=== PATIENT | male | born 1970 | race Asian ===

== ENCOUNTER → 2022-02-03 | Outpatient (CLI) | payer BC ==
[~2022-02-03] MED LIST: ATOR20TA; [UNRECOGNIZED DRUG - OTHER]
== END | disposition home or self-care (01) ==
LOC: LAB 15:28
PROVIDERS: ATTEND Internal Medicine
DX: R05.9 Cough, unspecified (principal)
CPT/HCPCS: 87070; 87077; 87186; 87205

== ENCOUNTER → 2023-06-10 | Outpatient (CLI) | payer BC ==
[2023-06-10 14:17] LABS: Basophils # (auto) 0 10 ^3/uL (0-0.2); Basophils % (auto) 0.7 % (0.0-2.0); Eosinophils # (auto) 0.2 10 ^3/uL (0-0.8); Eosinophils % (auto) 2.1 % (0.0-7.0); Lymphocytes # (auto) 2.9 10 ^3/uL (0.4-5.4); Lymphocytes % (auto) 38.1 % (10.0-50.0); Mean Corpuscular Hemoglobin 29.6 pg (28.0-32.0); Mean Corpuscular Hgb Conc. 33.4 g/dL (32.0-36.0); Mean Corpuscular Volume 88.8 fL (80.0-100.0); Monocytes # (auto) 0.8 10 ^3/uL (0-1.3); Monocytes % (auto) 10.3 % (0.0-12.0); Neutrophils # (auto) 3.7 10 ^3/uL (1.6-8.6); Neutrophils % (auto) 48.8 % (37.0-80.0); Nucleated Red Blood Cells % 0.1 %; Red Blood Cells 4.74 10^6/uL (4.5-5.90); Red Cell Distribution Width 14.7 % (11.8-14.3); White Blood Cell 7.6 10^3/uL (4.4-10.8)
[2023-06-10 14:56] LABS: Alanine Aminotransferase 44 U/L (7-40); Albumin 4.9 g/dL (3.2-4.8); Alkaline Phosphatase 89 U/L (46-116); Anion Gap 5 (5-15); Aspartate Aminotransferase 32 U/L (13-40); BUN/Creatinine Ratio 9.1 (10.0-20.0); Bilirubin, Total 0.8 mg/dL (0.2-1.0); Blood Urea Nitrogen 8 mg/dL (9-23); Calcium 9.9 mg/dL (8.7-10.4); Carbon Dioxide 31 mmol/L (20-30); Chloride 104 mmol/L (98-107); Glucose 85 mg/dL (74-106); Sodium 140 mmol/L (136-145); Total Protein 7.4 g/dL (5.7-8.2)
[2023-06-10 15:03] LABS: Urine Bacteria NONE SEEN /hpf (None Seen); Urine Blood Negative /uL (Negative); Urine Clarity Clear (Clear); Urine Color Colorless (Yellow); Urine Protein, UAD Negative (Negative); Urine Specific Gravity 1.014 (1.001-1.035); Urine Urobilinogen Normal (Negative); Urine WBC <1 /hpf (0 - 3); Urine pH 6.5 (5.0-8.0)
== END | disposition home or self-care (01) ==
LOC: LAB 13:56
PROVIDERS: ATTEND Internal Medicine
DX: R07.9 Chest pain, unspecified (principal)
CPT/HCPCS: 36415; 80053; 81001; 84484; 85025

== ENCOUNTER 2025-05-02 12:00 | Outpatient (CLI) | payer BC ==
[~2025-05-02 12:00] MED LIST changes: +AZITTAB PO; +PRED20TA2 PO; +TAMIFLU PO
--- NOTE | 2025-05-02 13:58 | DVHCARD ---
Cardiology Stress Test [place] Treadmill Stress Test [place] Referring MD: MD Dara Protocol: Matias (with cardiolite) Reason for referral: Other (HTN) Target heart Rate:@85%: 141 Percent MPHR: 166 METS: 10.10 Resting Heart rate: 93 Resting Blood Pressure: 157/94 Exercise Heart Rate: 142 Exercise Blood Pressure: 211/96 Reason for Termination of Test: Completion of Protocol Baseline EKG: NSR Stress EKG: Sinus tachycardia withou ST-T segment changes Functional Capacity: Good Normal Heart Rate Response: Adequate Blood Pressure Response: Hypertensive Clinical response: Non-ischemic Arrhythmia?: No Cardiolite Injected?: Yes ST-T Changes: Non/Minimal Probability of Inducible Ische: Perfusion result pending Comments: Uneventful Matias protocol Date of Service: May 02, 2025 Billing Provider: ALONZO BERNARD Cardiology Common Codes: PROCEDURE ONLY Treadmill W/Cardiolite Nuclear: [id number], INTERP, RPT ALONZO BERNARD May 02, 2025 13:58
--- NOTE | 2025-05-04 12:09 | DVHSR ---
APPROVED REPORT Exam: Nuclear Stress Test BMI: 0 Stress Test Details Stress Test: Pharmacologic stress testing performed using 0.4 mg of regadenoson per 5 mL given IV ov er 10 seconds. HR Resting HR: 59 bpmMax Heart Rate (APMHR): 166.504577 bpm Max HR Achieved: 142 bpmTarget HR (85% APMHR): 141.608117 bpm % of APMHR: 85.54 Recovery HR: 68 bpm BP Resting BP: 157/94 mmHg Recovery BP: 158/86 mmHg ECG Resting ECG: Sinus Rhythm Clinical Reason for Termination: Completed protocol Nurse Comments -Recieved ambulatory, A/Ox4 on RA, connected to elementary school librarian, VS stable. PIV S/L flushes well, rev iewed POC, pt verbalized understanding. Srinivas ENGINE REPAIRER [employer]ODUCTION here to monitor exam. orthodontic laboratory technician administered cardiol yte. Treadmill test performed per protocol. Pt stable, tolerated well, VS returned to baseline. Pt to follow up with pearl peller for results. Stress ECG Conclusion lvef 64% normal perfusin scan GI artifact noted NM EXAM: Myocardial Perfusion REST/STRESS Imaging Protocol: Rest Tc-99m/Stress Tc-99m 1 day Resting Data Rest SPECT myocardial perfusion imaging was performed in supine position 30 minutes following the int ravenous injection of 9.5 mCi of Tc-99m Sestamibi. Time of rest injection: 1230 Time of rest imagin Administration Route: IV Administration Site: Right AC Exercise Stress At peak stress, the patient was injected intravenously with 27.2mCi of Tc-99m Sestamibi. Time of stress injection: 1320 Time of stress imagin Administration Route: IV Administration Site: Right AC Gated Stress SPECT was performed 35 minutes after stress injection. The images were gated to evaluate regional wall motion and calculate left ventricular ejection fracti on. Nuclear Conclusion Nuclear Findings: negative for ischemia lvef 64% normal perfusin scan GI artifact noted
== END 2025-05-02 17:00 | disposition home or self-care (01) ==
LOC: XYW 12:00 → EEVIPCON 12:00 → XYW 17:00
PROVIDERS: ATTEND Internal Medicine
DX: R07.9 Chest pain, unspecified (principal); I10 Essential (primary) hypertension
CPT/HCPCS: 78452; 93017; A9500

== ENCOUNTER 2025-05-02 12:50 | Outpatient (CLI) | payer BC ==
[~2025-05-02] VITALS: Ht 177.8 cm; Wt 72.6 kg
[2025-05-02 13:21] LABS: Hematocrit 45.2 % (41.0-53.0); Hemoglobin 15.2 g/dL (13.5-17.5); Mean Corpuscular Hemoglobin 29.5 pg (28.0-32.0); Mean Corpuscular Volume 87.5 fL (80.0-100.0); Nucleated Red Blood Cells % 0.0 %
[2025-05-02 13:27] LABS: Urine Protein, UAD Negative (Negative)
[2025-05-02 14:02] LABS: Prostate Specific Antigen 10.5 ng/mL (0.0-4.0)
[2025-05-02 14:03] LABS: Alanine Aminotransferase 29 U/L (7-40); Albumin 4.7 g/dL (3.2-4.8); Alkaline Phosphatase 74 U/L (46-116); Anion Gap 9 (5-15); BUN/Creatinine Ratio 6.4 (10.0-20.0); Bilirubin, Total 0.6 mg/dL (0.2-1.0); Calcium 9.6 mg/dL (8.7-10.4); Carbon Dioxide 29 mmol/L (20-31); Chloride 100 mmol/L (98-107); Glucose 80 mg/dL (74-106); Potassium 4.5 mmol/L (3.5-5.1); Sodium 138 mmol/L (136-145); Total Protein 7.4 g/dL (5.7-8.2)
[2025-05-02 14:07] LABS: Free T4 (Free Thyroxine) 1.56 ng/dL (0.89-1.76)
[2025-05-02 14:13] LABS: Blood Urea Nitrogen 6 mg/dL (9-23)
[2025-05-02 14:44] LABS: Cholesterol 229 mg/dL (< 200); HDL Cholesterol 59 mg/dL (40-59); Triglycerides 139 mg/dL (< 150)
== END 2025-05-02 17:00 | disposition home or self-care (01) ==
LOC: LAB 12:50
PROVIDERS: ATTEND Internal Medicine
DX: Z00.00 Encounter for general adult medical examination without abnormal findings (principal)
CPT/HCPCS: 36415; 80053; 80061; 81001; 82306; 82607; 82746; 83036; 84153; 84403; 84439; 84443; 85025

== ENCOUNTER 2025-05-06 10:55 | Outpatient (CLI) | payer BC ==
[2025-05-06] MEDS ORDERED: ASPI81CH74 PO (11:21)
[2025-05-06] MEDS ORDERED: LOSA-534 PO (11:21)
[2025-05-06 12:11] LABS: Alanine Aminotransferase 29 U/L (7-40); Alkaline Phosphatase 68 U/L (46-116); Anion Gap 8 (5-15); BUN/Creatinine Ratio 7.7 (10.0-20.0); Calcium 9.2 mg/dL (8.7-10.4); Carbon Dioxide 29 mmol/L (20-31); Chloride 103 mmol/L (98-107); Glucose 76 mg/dL (74-106); Potassium 4.6 mmol/L (3.5-5.1); Sodium 140 mmol/L (136-145); Total Protein 7.3 g/dL (5.7-8.2)
[2025-05-06 12:12] LABS: Albumin 4.7 g/dL (3.2-4.8); Bilirubin, Total 0.9 mg/dL (0.2-1.0)
[2025-05-06 12:13] LABS: Blood Urea Nitrogen 7 mg/dL (9-23)
== END 2025-05-06 17:00 | disposition home or self-care (01) ==
LOC: LAB 10:55
PROVIDERS: ATTEND Urology
DX: R97.20 Elevated prostate specific antigen [PSA] (principal)
CPT/HCPCS: 36415; 80053

== ENCOUNTER → 2025-05-09 | Outpatient (CLI) | payer BC ==
--- NOTE | 2025-05-07 09:19 | ECG ---
[facility] Test Date: 2025-05-06 Test Time: 11:38:01 Pat Name: SYLVIA ANGELES Department: Room: Gender: M Clarity Developer: DEBORAH : 1970 Requested By: ALINE ARANGO Order Number: [id number] Reading MD: Kurt Whitmore Measurements Intervals Jessie Rate: 63 P: 35 UT: 112 QRS: 27 QRSD: 92 T: 54 QT: 414 QTc: 423 Interpretive Statements Normal sinus rhythm Electronically Signed On 05-09-2025 21:07:52 PDT by Kurt Whitmore Please click the below link to view image of tracing.
[~2025-05-09] VITALS: Ht 180.3 cm; Wt 71.2 kg
[~2025-05-09] MED LIST changes: +ASPI81CH74 PO; -AZITTAB PO; +IOHEXOL 350 MG/ML 100ML IJ ONE; +LOSA-534 PO; +NITROGLYCERIN 0.4 MG SL TAB SL ONE; -PRED20TA2 PO; -TAMIFLU PO; -[UNRECOGNIZED DRUG - OTHER]
== END | disposition home or self-care (01) ==
LOC: CATH 11:56
PROVIDERS: ATTEND Radiology Vascular & Interventional Radiology
DX: I10 Essential (primary) hypertension (principal)
CPT/HCPCS: 93005; Q9967

== ENCOUNTER 2025-05-14 06:20 | Day surgery (SDC) | payer BC ==
[2025-05-09 12:15] LABS: INR 0.98 (0.9-1.15); Partial Thromboplastin Time 29.7 SEC (24.5-34.5); Prothrombin Time 10.4 sec (9.3-11.8)
[~2025-05-14] VITALS: Ht 177.8 cm; Wt 71.2 kg
[~2025-05-14 06:20] MED LIST changes: -IOHEXOL 350 MG/ML 100ML IJ ONE; -NITROGLYCERIN 0.4 MG SL TAB SL ONE
[2025-05-14] MEDS ORDERED: fentaNYL CITRATE 100 MCG/2 ML VL ONE (07:08)
[2025-05-14] MEDS ORDERED: PROPOFOL 10 MG/ML 20 ML IV ONE (07:08)
[2025-05-14] MEDS ORDERED: ONDANSETRON HCL 4 MG/2 ML VIAL ONE (08:17)
[2025-05-14] MEDS: CIPROFLOXACIN 400MG/200ML 200 ML IV ONE (08:30)
[2025-05-14 08:36] VITALS: PULSE 83; RESP 13; TEMP 96.8; O2SAT 98
--- NOTE | 2025-05-14 08:36 | DVHNC2 ---
Procedure - OPERATIVE REPORT Pre-op. Diagnosis: urinary frequency ELEVATED PSA Post-op. Diagnosis: Same as pre-op diagnosis Operation: Cystoscopy TRUS prostate biopsy Anesthesia: General Indications: Patient with history of elevated PSA, 4K score of 17% and prostate MRI showing an 18.8 g volume with indeterminate PI-RADS three lesions. Benefits and risks of procedures were discussed with the patient who understood and agreed with surgery. Details of Procedure: Patient was brought to the OR and placed in supine position in the OR table. Anesthesia was induced and patient was placed in lithotomy position. He was prepped and draped in sterile fashion. Using a Flexible cystoscope we entered the urethra and in to the bladder. The prostate was found to be short, but with kissing lateral lobes and high median bar, no intrusion of the prostate into the bladder. the bladder was found to have mild trabeculations, no foreign bodies, no lesions, bilateral ureteral orifices in orthotopic position. The cystoscope was removed in entirety. At this point using an ultrasound probe with a biopsy guide we proceeded to enter the rectum. The prostate was measured as 20 cc. There were a few nonspecific hypoechoic density of the transitional zones. The peripheral zone of the prostate did not appear abnormal. At this point we proceeded to take 12 cores samples from the prostate from the right base lateral, right base medial, right mid lateral, right mid medial, right apex lateral, right apex medial and subsequently the same areas on the left. Patient tolerated the procedure well and was transferred to recovery awake and in stable conditions. Specimens: Prostate tissue from the above areas total of 12 cores Complications: None Findings: As above LIVIA COMBS MD May 14, 2025 08:36
--- NOTE | 2025-05-14 08:38 | DVHDS2 ---
New Physician D'charge PN Admitting Diagnosis Admitting Diagnosis Elevated PSA and urinary frequency Discharge Diagnosis Same Operations or Procedures Cystoscopy Transrectal ultrasound-guided prostate biopsy Reason(s) For Hospitalization Surgery Treatment Plan Discharge Condition of Discharge Good Disposition Home Discharge Instructions Diet: Regular Activity: Light activity Activity comment: As tolerated Medications: Given Follow Up Care Follow Up/Referral: Two weeks for pathology results Discharge Statement: "Patient was advised to return to the ER or call 911 if any headaches, dizziness, shortness of breath, chest pain, abdominal pain, bleeding, fevers, or worsening of medical condition. Patient was counseled about treatment plan, medications, possible side effects, patientverbalized understanding. All questions were answered to the best of my ability. This discharge took greater then 30 minutes in planning, reviewing documentation, counseling the patient, and discussing with other team members." LIVIA COMBS MD May 14, 2025 08:38
[2025-05-14 09:06] VITALS: BP 133/75; PULSE 69; RESP 12; O2SAT 99
[2025-05-20] MEDS ORDERED: CEFU500T43 PO (11:08)
== END 2025-05-14 09:21 | disposition home or self-care (01) ==
LOC: SUR 06:20
PROVIDERS: ATTEND Urology
DX: R97.20 Elevated prostate specific antigen [PSA] (principal); R35.0 Frequency of micturition; I10 Essential (primary) hypertension; E78.5 Hyperlipidemia, unspecified
CPT/HCPCS: 36415; 55700; 76872; 85610; 85730; 87086; 88305; J0744; J2405; J2704; J3010

== ENCOUNTER 2025-05-16 17:49 | Inpatient (IN) | payer BC ==
[~2025-05-16] VITALS: Ht 180.3 cm; Wt 70.2 kg
[2025-05-16] MEDS ORDERED: VANCOMYCIN PER PHARMACY 0 MG IV SCH (19:30)
[2025-05-16] MEDS ORDERED: ONDANSETRON HCL 4 MG/2 ML VIAL IV PRN (19:30)
[2025-05-16] MEDS ORDERED: MORPHINE SULFATE INJ 2 MG/ml SYRG IV PRN (19:30)
[2025-05-16] MEDS ORDERED: HYDROcodone-ACET 5/325MG TAB PO PRN (19:30)
--- NOTE | 2025-05-16 19:44 | DVHHP2 ---
History of Present Illness Reason for Visit: Fever History of Present Illness 55-year-old male presents for evaluation of fever. Patient reports having a prostate biopsy two days ago. He states that since yesterday he developed a fever that has been constant with an associated generalized weakness headache and nausea. He also states mild dysuria and hematuria with initial urination which subsides. Past Medical History Hypertension, dyslipidemia Past Surgical History Prostate biopsy Family History Noncontributory Smoke: No ALCOHOL: none Drugs: None Lives: with Family Review of Systems Review of Systems Review of systems are currently negative otherwise addressed in HPI. Allergies: Coded Allergies: NO KNOWN ALLERGIES (Unverified , 09/06/10) Medications Current Medications Medications Dose Ordered Sig/Kristopher Route Start Time Stop Time Status Last Admin Dose Admin Losartan Potassium 50 mg DAILY PO 05/17/25 10:00 UNV Atorvastatin Calcium 20 mg HS PO 05/16/25 22:00 UNV Cefepime HCl 50 ml @ 12.5 mls/hr Q8HR IV 05/16/25 22:00 UNV Vancomycin HCl 0 ml @ 0 mls/hr UD IV 05/16/25 19:30 UNV Acetaminophen/ Hydrocodone Bitart 1 tab Q4HP PRN PO 05/16/25 19:30 UNV Temazepam 15 mg QHSP PRN PO 05/16/25 19:30 UNV Ondansetron HCl 4 mg Q4HP PRN IV 05/16/25 19:30 UNV Acetaminophen 650 mg Q6HP PRN PO 05/16/25 19:30 UNV Morphine Sulfate 2 mg Q4HPRN PRN IV 05/16/25 19:30 UNV Exam Exam Gen: 55 year old male in mild distress Skin: Warm, dry, normal color and texture, no rash. HEENT: Normocephalic atraumatic, mucous membranes moist and pink. Neck: Cervical and supraclavicular nodes normal without enlargement, trachea is midline, thyroid gland is normal without masses. Pulmonary: Clear to auscultation and percussion bilaterally. Cardiac: Regular rate and rhythm. No murmur Abdomen: Soft, nontender, nondistended, bowel sounds present all 4 quadrants, no guarding, no rigidity, no organomegaly. Extremities: No cyanosis, clubbing, no edema Neuro: Cranial nerves II through XII grossly intact, normal affect and speech, no focal motor deficits. SEPSIS Sepsis Screen Physician Orders Blood Culture (05/16/25 19:22) Urine Bacterial Culture (05/16/25 19:22) Urinalysis (05/16/25 19:22) Losartan Tablet (Cozaar Tablet) (05/17/25 10:00) Atorvastatin (Lipitor) (05/16/25 22:00) Cefepime 1gm/50ml (Maxipime 1gm/50ml) (05/16/25 22:00) Vancomycin Per Pharmacy (05/16/25 19:30) Comprehensive Metabolic Panel (05/16/25 19:22) Complete Blood Count (05/16/25 19:22) * Urology Consult (05/16/25 19:22) Regular Diet (05/17/25 Breakfast) Admit (05/16/25 19:22) Hydrocodone-Acet 5/325mg Tab ([place] 5/32 (05/16/25 19:30) Temazepam (Restoril) (05/16/25 19:30) Ondansetron Hcl (Zofran) (05/16/25 19:30) Condition: Stable (05/16/25 19:22) Acetaminophen Tablet (Tylenol Tablet) (05/16/25 19:30) Bedrest With Bathroom Privileg (05/16/25 19:22) Morphine Sulfate Injection (05/16/25 19:30) Sodium Chloride 0.9% (05/16/25 19:30) Assessment/Plan Assessment/Plan Assessment Fever of unknown etiology Rule out sepsis Plan discussed with: Patient My Orders Orders - ALINE GALVAN AGACN Procedure Category Date Status Time Blood Culture CLARISSE 05/16/25 Logged 19:22 Urine Bacterial CLARISSE 05/16/25 Uncollected Culture 19:22 Urinalysis LAB 05/16/25 Logged 19:22 Losartan Tablet PHA 05/17/25 Logged (Cozaar Tablet) 10:00 Atorvastatin (Lipitor) PHA 05/16/25 Logged 22:00 Cefepime 1gm/50ml PHA 05/16/25 Logged (Maxipime 1gm/50ml) 22:00 Vancomycin Per PHA 05/16/25 Logged Pharmacy 19:30 Comprehensive LAB 05/16/25 Logged Metabolic Panel 19:22 Complete Blood Count LAB 05/16/25 Logged 19:22 * Urology Consult CONS 05/16/25 Transmitted 19:22 Regular Diet DIET 05/17/25 Transmitted Breakfast Admit ADMIT 05/16/25 Transmitted 19:22 Hydrocodone-Acet PHA 05/16/25 Logged 5/325mg Tab ([place] 19:30 Temazepam (Restoril) PHA 05/16/25 Logged 19:30 Ondansetron Hcl PHA 05/16/25 Logged (Zofran) 19:30 Condition: Stable [place] 05/16/25 In Process 19:22 Acetaminophen Tablet PHA 05/16/25 Logged (Tylenol Tablet) 19:30 Bedrest With Bathroom [place] 05/16/25 In Process Privileg 19:22 Morphine Sulfate PHA 05/16/25 Logged Injection 19:30 Sodium Chloride 0.9% PHA 05/16/25 Logged 19:30 Date of Service: May 16, 2025 Billing Provider: ALINE GALVAN Common Visit Codes: [id number] INP/OBS CARE (HIGH) ALINE GALVAN May 16, 2025 19:44
[2025-05-16 19:51] VITALS: BP 130/73; PULSE 84; PULSE 89; RESP 18; TEMP 98.4; O2SAT 98
[2025-05-16 20:00] VITALS: PULSE 88; RESP 18; O2SAT 95
[2025-05-16 20:21] LABS: Hematocrit 40.1 % (41.0-53.0); Hemoglobin 13.9 g/dL (13.5-17.5); Mean Corpuscular Hemoglobin 29.9 pg (28.0-32.0); Mean Corpuscular Volume 86.4 fL (80.0-100.0); Nucleated Red Blood Cells % 0.7 %
[2025-05-16] MEDS: CEFEPIME 1GM/50ML 50 ML IV ONE (20:22)
[2025-05-16] MEDS: SODIUM CHLORIDE 0.9% 1,000 ML IV ONE (20:35)
[2025-05-16 20:36] LABS: Albumin 4.5 g/dL (3.2-4.8); Anion Gap 12 (5-15); BUN/Creatinine Ratio 10.3 (10.0-20.0); Bilirubin, Total 0.9 mg/dL (0.2-1.0); Calcium 9.4 mg/dL (8.7-10.4); Carbon Dioxide 23 mmol/L (20-31); Chloride 102 mmol/L (98-107); Potassium 4.2 mmol/L (3.5-5.1); Sodium 137 mmol/L (136-145); Total Protein 6.8 g/dL (5.7-8.2)
[2025-05-16] MEDS ORDERED: TRAM50TA2 PO (20:48)
[2025-05-16] MEDS ORDERED: CIPR-173 PO (20:48)
[2025-05-16 21:00] VITALS: BP 118/73; PULSE 82; RESP 16; TEMP 98.4; O2SAT 97
[2025-05-16 21:02] LABS: Alanine Aminotransferase 192 U/L (7-40); Alkaline Phosphatase 129 U/L (46-116); Blood Urea Nitrogen 9 mg/dL (9-23); Glucose 137 mg/dL (74-106)
[2025-05-16] MEDS: ATORVASTATIN 20 MG TAB PO SCH (21:15)
[2025-05-16 21:39] LABS: Urine Protein, UAD TRACE (Negative)
[2025-05-16 22:12] LABS: Triglycerides 76.0 mg/dL (< 150)
[2025-05-16 22:13] LABS: Magnesium 2.1 mg/dL (1.6-2.6)
[2025-05-16 22:14] LABS: Cholesterol 125.0 mg/dL (< 200)
[2025-05-16 22:21] LABS: HDL Cholesterol 62.0 mg/dL (40-59)
--- NOTE | 2025-05-16 22:46 | DVH ---
CLINICAL HISTORY: transaminitis TECHNIQUE: Transabdominal sonogram was performed of the right upper quadrant. COMPARISON: None FINDINGS: The liver is normal in echogenicity. There is no focal parenchymal abnormality. No intrahepatic bili miquel ductal dilatation is present. The liver measures 13.5 cm. The gallbladder is normal with no evidence for stones or wall thickening. The common bile duct is normal in caliber, measuring 4 mm. The pancreas is difficult to see. The right kidney is normal in echogenicity and measures 10.3 cm in length. There is no evidence for h ydronephrosis or calculi. IMPRESSION: NO SIGNIFICANT SONOGRAPHIC ABNORMALITY OF THE IMAGED RIGHT UPPER QUADRANT.
[2025-05-17] VITALS (7 sets, daily range): BP systolic 132–147; BP diastolic 80–92; PULSE 71–91; RESP 14–18; TEMP 97.9–98.9; O2SAT 96–98
[2025-05-17] MEDS: ACETAMINOPHEN 325 MG TAB PO PRN (04:28)
[2025-05-17] MEDS: CEFEPIME 1GM/50ML 50 ML IV SCH (05:19)
[2025-05-17 06:29] LABS: Hematocrit 38.2 % (41.0-53.0); Hemoglobin 13.3 g/dL (13.5-17.5); Mean Corpuscular Hemoglobin 30.1 pg (28.0-32.0); Mean Corpuscular Volume 86.3 fL (80.0-100.0); Nucleated Red Blood Cells % 0.1 %
[2025-05-17 06:44] LABS: Alkaline Phosphatase 116 U/L (46-116); Anion Gap 12 (5-15); BUN/Creatinine Ratio 9.2 (10.0-20.0); Calcium 9.2 mg/dL (8.7-10.4); Carbon Dioxide 22 mmol/L (20-31); Chloride 104 mmol/L (98-107); Potassium 3.8 mmol/L (3.5-5.1); Sodium 138 mmol/L (136-145); Total Protein 6.7 g/dL (5.7-8.2)
[2025-05-17 06:45] LABS: Albumin 4.2 g/dL (3.2-4.8)
[2025-05-17 06:46] LABS: Bilirubin, Total 0.7 mg/dL (0.2-1.0)
[2025-05-17 06:47] LABS: Alanine Aminotransferase 157 U/L (7-40); Blood Urea Nitrogen 7 mg/dL (9-23); Glucose 110 mg/dL (74-106)
[2025-05-17 06:51] LABS: INR 1.07 (0.9-1.15); Partial Thromboplastin Time 34.2 SEC (24.5-34.5); Prothrombin Time 11.3 sec (9.3-11.8)
[2025-05-17] MEDS: LOSARTAN POTASSIUM 50 MG TAB PO SCH (09:37)
[2025-05-17] MEDS: ERGOCALCIFEROL 50,000 UNIT(1.25MG) CAP PO SCH (09:38)
--- NOTE | 2025-05-17 10:41 | DVH ---
XY CHEST TWO VIEWS ROUTINE CLINICAL HISTORY: SEPSIS COMPARISON: XY CHEST TWO VIEWS ROUTINE on DOS: 05/06/25 TECHNIQUE: Frontal and lateral view of the chest was obtained FINDINGS: Lines and Tubes: None Lungs: Calcified right apical mass possibly noted. CT recommended. Pleura: No effusion. No pneumothorax. Cardiomediastinal contours: Unremarkable Bones: No acute osseous abnormality. IMPRESSION: Calcified right apical mass possibly noted. CT recommended.
--- NOTE | 2025-05-17 13:40 | DVHPN2 ---
Subjective Patient continues to report having some abdominal pain Reviewed: Care Plan, H&P, Labs, Medications Changes from previous H/P or p: No Changes General: Per HPI Objective Vitals Vital Signs Date Time Temp Pulse Resp B/P (MAP) Pulse Ox O2 Delivery O2 Flow Rate FiO2 05/17/25 12:41 98.2 71 17 143/92 (109) 98 98.2 05/17/25 08:00 Room Air* 0 21 Intake/Output Intake and Output 05/17/25 07:00 Intake Total 1050 ml Output Total 0 ml Balance 1050 ml Intake Oral 0 ml IV Total 1050 ml Output Stool Total 0 ml # Voids 2 General Appearance: Alert, Oriented X3, Cooperative, mild distress HEENT: Atraumatic, PERRLA Lungs: Clear to auscultation, Normal air movement Cardiovascular: Normal S1, Normal S2 Abdomen: Normal bowel sounds, No tenderness, No hepatospenomegaly Musculoskeletal: Normal sensory function, Normal motor function Skin: Dry, Intact Psych/Mental Status: Mental status NL, Mood NL Medications Current Medications Medications Dose Ordered Sig/Kristopher Route Start Time Stop Time Status Last Admin Dose Admin Losartan Potassium 50 mg DAILY PO 05/17/25 10:00 05/17/25 09:37 50 MG Cefepime HCl 50 ml @ 12.5 mls/hr Q8HR IV 05/17/25 06:00 05/17/25 05:19 12.5 MLS/HR Acetaminophen/ Hydrocodone Bitart 1 tab Q4HP PRN PO 05/16/25 19:30 Temazepam 15 mg QHSP PRN PO 05/16/25 22:00 Ondansetron HCl 4 mg Q4HP PRN IV 05/16/25 19:30 Acetaminophen 650 mg Q6HP PRN PO 05/16/25 19:30 05/17/25 04:28 650 MG Morphine Sulfate 2 mg Q4HPRN PRN IV 05/16/25 19:30 Ergocalciferol 50,000 unit Q7D PO 05/17/25 10:00 05/17/25 09:38 50,000 UNIT Laboratory Results Laboratory Tests 05/17/25 05:17 Chemistry Test 05/16/25 20:05 05/16/25 21:40 05/17/25 05:17 Albumin 4.5 g/dL (3.2-4.8) 4.2 g/dL (3.2-4.8) Calcium Level 9.4 mg/dL (8.7-10.4) 9.2 mg/dL (8.7-10.4) Total Protein 6.8 g/dL (5.7-8.2) 6.7 g/dL (5.7-8.2) Magnesium Level 2.1 mg/dL (1.6-2.6) Phosphorus Level 2.8 mg/dL (2.4-5.1) Coagulation Test 05/17/25 05:17 Prothrombin Time 11.3 sec (9.3-11.8) Prothrombin Time INR 1.07 (0.9-1.15) Activated Partial Thromboplast Time 34.2 SEC (24.5-34.5) Lipid panel Test 05/16/25 21:40 Cholesterol Level 125 mg/dL (< 200) HDL Cholesterol 62 mg/dL (40-59) H Triglycerides Level 76 mg/dL (< 150) LFT Test 05/16/25 20:05 05/17/25 05:17 Alanine Aminotransferase (ALT) 192 U/L (7-40) H 157 U/L (7-40) H Alkaline Phosphatase 129 U/L (46-116) H 116 U/L (46-116) Aspartate Amino Transferase (AST) 137 U/L (13-40) H 87 U/L (13-40) H Total Bilirubin 0.9 mg/dL (0.2-1.0) 0.7 mg/dL (0.2-1.0) HgA1c, TSH Test 05/16/25 21:40 Thyroid Stimulating Hormone (TSH) 0.57 uIU/mL (0.55-4.78) Urinalysis Test 05/16/25 20:20 Urine Color Yellow (Yellow) Urine Clarity Turbid (Clear) H Urine pH 7.0 (5.0-9.0) Urine Specific [place] 1.022 (1.001-1.035) Urine Protein Trace (Negative) H Urine Ketones 1+ (Negative) H Urine Blood 3+ /uL (Negative) H Urine Nitrite Negative (Negative) Urine Bilirubin Negative (Negative) Urine Urobilinogen Normal mg/dL (Negative) Urine Leukocyte Esterase 2+ /uL (Negative) Urine RBC 457 /hpf (0 - 3) Urine Microscopic WBC 36 /HPF (0-3) H Urine Squamous Epithelial Cells Few /hpf (<5) Urine Bacteria None seen /hpf (None Seen) Urine Mucus Few (None Seen) Urine Glucose Normal mg/dL (Normal) Microbiology Microbiology Date/Time Source Procedure Growth Status 05/16/25 20:20 Voided Urine Urine Culture - Preliminary Resulted Labs and/or images reviewed: Labs reviewed by me, Image(s) reviewed by me Assessment/Plan Assessment/Plan Impression: -probable early sepsis -complicated cystitis -primary hypertension -dyslipidemia -prostatitis -rule out right upper lobe mass Plan: -urine culture positive for greater than [id number] of Gram-negative rods -continue cefepime -hold antihypertensives at this time -pain management -CT scan of the chest to rule out right upper lobe mass -urine culture pending -repeat labs in a.m. -reassess for discharge in a.m. Total time spent with patient discussing and formulating plan of care: 35 minutes. This medical document was created using an electronic medical record system with [employer] dictation system. Although this document has been carefully reviewed, there may still be some phonetic and typographical errors. These areas are purely typographical due to imperfections of the software programs, and do not reflect any compromise in the patient's medical care. Plan discussed with: Patient, Other (RN) My Orders Orders - GWEN KELLER NP Procedure Category Date Status Time Comprehensive LAB 05/18/25 Verified Metabolic Panel 04:00 Complete Blood Count LAB 05/18/25 Verified 04:[address] 05/17/25 Logged 13:28 Date of Service: May 17, 2025 Billing Provider: GWEN KELLER NP Common Visit Codes: [id number] INP/OBS CARE(HIGH) GWEN KELLER NP May 17, 2025 13:40
--- NOTE | 2025-05-17 14:48 | DVH ---
CLINICAL HISTORY: rule out right apical mass TECHNIQUE: CT of the chest was performed without intravenous contrast. This exam was performed accord ing to our departmental dose optimization program. Up-to-date CT equipment and radiation dose reducti on techniques are utilized as appropriate. COMPARISON: None FINDINGS: Lower Neck: There is a small hypodensity in the right lobe of the liver measuring 8.3 mm on series 2, image 13. Axilla, Mediastinum and [place]: Unremarkable. Heart and Great Vessels: Normal-sized heart without pericardial effusion. The thoracic aorta is norm al in caliber containing mild calcified atherosclerotic plaque. The central pulmonary arteries are no rmal caliber. At least mild coronary artery calcifications are seen. Airway, Lungs and Pleura: Trachea and central airways are patent. Sub 5 mm left upper lobe pulmonary nodule on series 3, image 14. Small ground-glass nodule, subcentimeter in the left upper lobe on ser ies 3, image 17. No airspace consolidation, pleural effusion, or pneumothorax. Upper Abdomen: No acute abnormality in the upper abdomen. Chest Wall and Osseous Structures: There is widening and central lucency of the lateral and anterior aspect of the 1st right rib. No destructive osseous lesion. IMPRESSION: 1. Widening and lucency of the lateral and anterior right 1st rib corresponding to the finding on day chest radiograph. 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 2. Sub 5 mm left upper lobe pulmonary nodule which may be postinfectious or postinflammatory. 3. Tiny ground-glass nodule in the left upper lobe which also may be postinfectious or postinflammato ry. 4. At least mild 3-vessel calcified coronary artery disease. Radiation optimization: All CT scans at this facility use at least one of these dose optimization tushar hniques: automated exposure control mA and/or kV adjustment per patient size (includes targeted exam s where dose is matched to clinical indication) or iterative reconstruction.
--- NOTE | 2025-05-17 21:44 | DVHINCON2 ---
Date of service: May 17, 2025 Referring Physician Hospitalist Reason for Consultation Fever/sepsis post prostate biopsy History of Present Illness Patient underwent prostate biopsy on 05/14/25 with appropriate prophylactic antibiotic measures. He is admitted for fever to 102F. Blood/urine cultures taken. Past Medical History see HPI Past Surgical History Cystoscopy with TRUS/PNBX 05/14/25 Family History: Cerebrovascular accident (CVA) G8 MOTHER Allergies: Coded Allergies: NO KNOWN ALLERGIES (Unverified , 09/06/10) Home Meds Reported Medications Ciprofloxacin Hcl (Cipro) 500 Mg Tab, 500 MG PO BID 05/16/25 Tramadol Hcl (Tramadol Hcl) 50 Mg Tab, 50 MG PO Q6HP PRN for PAIN SCALE 1 THRU 6, MG 05/16/25 Losartan Potassium (Losartan Potassium) 50 Mg Tab, 50 MG PO DAILY for 30 Days, MG 05/06/25 Aspirin (Aspirin 81 Low Dose) 81 Mg Chw, 81 MG PO DAILY, TAB.CHEW 05/06/25 Atorvastatin Calcium (Lipitor) 20 Mg Tab 09/06/10 Current Medications Current Medications Medications (Trade) Dose Ordered Sig/Kristopher Route PRN Reason Start Time Stop Time Status Last Admin Losartan Potassium (Cozaar Tablet) 50 mg DAILY PO 05/17/25 10:00 05/17/25 09:37 Atorvastatin Calcium (Lipitor) 20 mg HS PO 05/16/25 22:00 05/17/25 06:11 DC 05/16/25 21:15 Cefepime HCl 50 ml @ 12.5 mls/hr Q8HR IV 05/17/25 06:00 05/17/25 14:43 Temazepam (Restoril) 15 mg QHSP PRN PO FOR INSOMNIA 05/16/25 22:00 Ergocalciferol (Vitamin D 50,000 Unit) 50,000 unit Q7D PO 05/17/25 10:00 05/17/25 09:38 Review of Systems No gross hematuria +fever and malaise Vital Signs Vital Signs Date Time Temp Pulse Resp B/P (MAP) Pulse Ox O2 Delivery O2 Flow Rate FiO2 05/17/25 17:00 98.2 78 18 139/92 (108) 97 98.2 05/17/25 08:00 Room Air* 0 21 Physical Exam NAD AVSS Labs/Diagnostic Data Labs Test 05/17/25 05:17 05/16/25 21:40 05/16/25 20:20 05/16/25 20:05 Range/Units White Blood Count 13.7 H 4.4-10.8 10^3/uL Red Blood Count 4.42 L 4.5-5.90 10^6/uL Hemoglobin 13.3 L 13.5-17.5 g/dL Hematocrit 38.2 L 41.0-53.0 % Mean Corpuscular Volume 86.3 80.0-100.0 fL Mean Corpuscular Hemoglobin 30.1 28.0-32.0 pg Mean Corpuscular Hemoglobin Concent 34.8 32.0-36.0 g/dL Red Cell Distribution Width 13.3 11.8-14.3 % Platelet Count 189 140-450 10^3/uL Mean Platelet Volume 8.8 6.9-10.8 fL Neutrophils (%) (Auto) 79.6 37.0-80.0 % Lymphocytes (%) (Auto) 11.5 10.0-50.0 % Monocytes (%) (Auto) 8.7 0.0-12.0 % Eosinophils (%) (Auto) 0.0 0.0-7.0 % Basophils (%) (Auto) 0.2 0.0-2.0 % Neutrophils # (Auto) 10.9 H 1.6-8.6 10 ^3/uL Lymphocytes # (Auto) 1.6 0.4-5.4 10 ^3/uL Monocytes # (Auto) 1.2 0-1.3 10 ^3/uL Eosinophils # (Auto) 0 0-0.8 10 ^3/uL Basophils # (Auto) 0 0-0.2 10 ^3/uL Nucleated Red Blood Cells 0.1 % Prothrombin Time 11.3 9.3-11.8 sec Prothrombin Time INR 1.07 0.9-1.15 Activated Partial Thromboplast Time 34.2 24.5-34.5 SEC Sodium Level 138 136-145 mmol/L Potassium Level 3.8 3.5-5.1 mmol/L Chloride Level 104 98-107 mmol/L Carbon Dioxide Level 22 20-31 mmol/L Anion Gap 12 5-15 Blood Urea Nitrogen 7 L 9-23 mg/dL Creatinine 0.76 0.700-1.30 mg/dL Glomerular Filtration Rate Calc 107 >90 mL/min BUN/Creatinine Ratio 9.2 L 10.0-20.0 Serum Glucose 110 H 74-106 mg/dL Calcium Level 9.2 8.7-10.4 mg/dL Total Bilirubin 0.7 0.2-1.0 mg/dL Aspartate Amino Transferase (AST) 87 H 13-40 U/L Alanine Aminotransferase (ALT) 157 H 7-40 U/L Alkaline Phosphatase 116 46-116 U/L Total Protein 6.7 5.7-8.2 g/dL Albumin 4.2 3.2-4.8 g/dL Lactic Acid Level 0.8 0.4-2.0 mmol/L Phosphorus Level 2.8 2.4-5.1 mg/dL Magnesium Level 2.1 1.6-2.6 mg/dL C-Reactive Protein High Sensitivity 14.66 H <1.0 mg/dL Triglycerides Level 76 < 150 mg/dL Cholesterol Level 125 < 200 mg/dL LDL Cholesterol 51 < 100 mg/dL HDL Cholesterol 62 H 40-59 mg/dL Thyroid Stimulating Hormone (TSH) 0.57 0.55-4.78 uIU/mL Urine Color Yellow Yellow Urine Clarity Turbid H Clear Urine pH 7.0 5.0-9.[address] 1.022 1.001-1.035 Urine Protein Trace H Negative Urine Ketones 1+ H Negative Urine Blood 3+ H Negative /uL Urine Nitrite Negative Negative Urine Bilirubin Negative Negative Urine Urobilinogen Normal Negative mg/dL Urine Leukocyte Esterase 2+ Negative /uL Urine RBC 457 0 - 3 /hpf Urine Microscopic WBC 36 H 0-3 /HPF Urine Squamous Epithelial Cells Few <5 /hpf Urine Bacteria None seen None Seen /hpf Urine Mucus Few None Seen Urine Glucose Normal Normal mg/dL Erythrocyte Sedimentation Rate 14 0-20 mm/hr Vitamin D 25-Hydroxy 28.2 L 30.0-100 ng/mL Microbiology Date/Time Source Procedure Growth Status 05/16/25 20:20 Voided Urine Urine Culture - Preliminary Resulted 05/16/25 20:05 Blood Blood Culture - Preliminary NO GROWTH AFTER 24 HOURS OF INCUBATION. Resulted Assessment Post prostate biopsy fever Malaise Plan/Recommendation Sepsis management IV abx Plan discussed with: Patient, Other LIVIA COMBS MD May 17, 2025 21:44
[2025-05-17] MEDS: TEMAZEPAM 15 MG CAP PO PRN (21:59)
[2025-05-18 05:00] VITALS: BP 150/98; PULSE 73; RESP 16; TEMP 98; O2SAT 98
[2025-05-18 07:11] LABS: Hematocrit 41.3 % (41.0-53.0); Hemoglobin 14.4 g/dL (13.5-17.5); Mean Corpuscular Hemoglobin 30.0 pg (28.0-32.0); Mean Corpuscular Volume 86.1 fL (80.0-100.0); Nucleated Red Blood Cells % 0.0 %
[2025-05-18 07:32] LABS: Anion Gap 11 (5-15); BUN/Creatinine Ratio 11.5 (10.0-20.0); Blood Urea Nitrogen 9 mg/dL (9-23); Calcium 9.2 mg/dL (8.7-10.4); Carbon Dioxide 25 mmol/L (20-31); Chloride 102 mmol/L (98-107); Glucose 89 mg/dL (74-106); Potassium 4.3 mmol/L (3.5-5.1); Sodium 138 mmol/L (136-145); Total Protein 7.1 g/dL (5.7-8.2)
[2025-05-18 07:34] LABS: Alanine Aminotransferase 196 U/L (7-40); Albumin 4.4 g/dL (3.2-4.8); Alkaline Phosphatase 135 U/L (46-116); Bilirubin, Total 0.6 mg/dL (0.2-1.0)
[2025-05-18 09:00] VITALS: BP 128/79; PULSE 82; RESP 17; TEMP 98; O2SAT 98
--- NOTE | 2025-05-18 10:59 | DVHPN2 ---
Progress Note - Dictate Date Seen: May 18, 2025 Has the PT tested + for MRSA If YES, has PT been informed?: No Medical Necessity Reason Pt with a Central, PICC or Fol: No Medical Necessity Reason Post operative fever status post prostate biopsy Subjective Patient is feeling much better today. Mr. Barfield informed me that his younger brother was recently diagnosed with metastatic lung cancer. For this reason he was eager to have his prostate biopsy done to rule out possible cancer. His biopsy was negative. His UA shows Gram-negative rods possibly E coli. vital signs Vital Sign Date Time Temp Pulse Resp B/P (MAP) Pulse Ox O2 Delivery O2 Flow Rate FiO2 05/18/25 09:00 98.0 82 17 128/79 (95) 98 98.0 05/18/25 07:56 Room Air* 0 21 Total Intake and Output 05/17/25 05/17/25 05/18/25 15:00 23:00 07:00 Intake Total 50 ml 1350 ml 1350 ml Balance 50 ml 1350 ml 1350 ml medications Current Medications Medications Dose Ordered Sig/Kristopher Route Start Time Stop Time Status Last Admin Dose Admin Losartan Potassium 50 mg DAILY PO 05/17/25 10:00 05/17/25 09:37 50 MG Temazepam 15 mg QHSP PRN PO 05/16/25 22:00 05/17/25 21:59 15 MG Ondansetron HCl 4 mg Q4HP PRN IV 05/16/25 19:30 Morphine Sulfate 2 mg Q4HPRN PRN IV 05/16/25 19:30 Ergocalciferol 50,000 unit Q7D PO 05/17/25 10:00 05/17/25 09:38 50,000 UNIT Ceftriaxone Sodium 50 ml @ 100 mls/hr DAILY@09 IV 05/18/25 12:00 UNV Sodium Chloride 1,000 ml @ 100 mls/hr Q10H IV 05/18/25 10:45 UNV objective RUN DATE: 05/17/25 PAGE 1 RUN TIME: 953 [facility] [address] [place], [place] [address] Erica Cassidy M.D., Laboratory Counc[employer] - PATIENT: SYLVIA ANGELES ACCT: [id number] LOC: [place] U: [id number] AGE/SX: 55/M ROOM: 0209 RE05/16/[address]: ALINE GALVAN : 1970 BED: A DIS: STATUS: ADM IN TLOC: - SPEC #: [id number] HIRO: 05/16/25 STATUS: RES REQ #: [id number] RECD: 05/16/[address]: ALINE GALVAN SOURCE: VOID ENTR: 05/16/[address]: YOUSIF MAYORGA MD SPDESC: ORDERED: [facility] COMMENTS: Has specimen been collected/obtained? Y - Procedure Result - Urine Bacterial Culture Preliminary Report >100,000 CFU/mL Gram Negative Rods Identification and Susceptibilty test to follow. laboratory and microbiology Laboratory Tests 05/18/25 05:12 Test 05/18/25 05:12 Range/Units Serum Glucose 89 74-106 mg/dL Problem List Postoperative fever, rule out bacteremia Assessment/Plan UTI History of elevated PSA status post prostate needle biopsy Treat two weeks with appropriate antibiotics upon discharge 4K score to be repeated in six months Plan discussed with: Patient LIVIA COMBS MD May 18, 2025 10:59
--- NOTE | 2025-05-18 11:11 | DVHPN2 ---
Reviewed: Care Plan, H&P, Labs, Medications, Previous Orders, Radiology Changes from previous H/P or p: No Changes General: Per HPI Objective Vitals Vital Signs Date Time Temp Pulse Resp B/P (MAP) Pulse Ox O2 Delivery O2 Flow Rate FiO2 05/18/25 09:00 98.0 82 17 128/79 (95) 98 98.0 05/18/25 07:56 Room Air* 0 21 Intake/Output Intake and Output 05/18/25 06:59 Intake Total 2750 ml Balance 2750 ml Intake Oral 2600 ml IV Total 150 ml # Voids 6 # Bowel Movements 1 General Appearance: Alert, Oriented X3, Cooperative HEENT: Atraumatic Lungs: Clear to auscultation, Normal air movement Cardiovascular: Regular rate Abdomen: Normal bowel sounds, No tenderness Psych/Mental Status: Mental status NL, Mood NL Medications Current Medications Medications Dose Ordered Sig/Kristopher Route Start Time Stop Time Status Last Admin Dose Admin Losartan Potassium 50 mg DAILY PO 05/17/25 10:00 05/17/25 09:37 50 MG Temazepam 15 mg QHSP PRN PO 05/16/25 22:00 05/17/25 21:59 15 MG Ondansetron HCl 4 mg Q4HP PRN IV 05/16/25 19:30 Morphine Sulfate 2 mg Q4HPRN PRN IV 05/16/25 19:30 Ergocalciferol 50,000 unit Q7D PO 05/17/25 10:00 05/17/25 09:38 50,000 UNIT Ceftriaxone Sodium 50 ml @ 100 mls/hr DAILY@09 IV 05/18/25 12:00 UNV Sodium Chloride 1,000 ml @ 100 mls/hr Q10H IV 05/18/25 10:45 UNV Laboratory Results Laboratory Tests 05/18/25 05:12 Chemistry Test 05/18/25 05:12 Albumin 4.4 g/dL (3.2-4.8) Calcium Level 9.2 mg/dL (8.7-10.4) Total Protein 7.1 g/dL (5.7-8.2) LFT Test 05/18/25 05:12 Alanine Aminotransferase (ALT) 196 U/L (7-40) H Alkaline Phosphatase 135 U/L (46-116) H Aspartate Amino Transferase (AST) 131 U/L (13-40) H Total Bilirubin 0.6 mg/dL (0.2-1.0) Urinalysis Test 05/16/25 20:20 Urine Color Yellow (Yellow) Urine Clarity Turbid (Clear) H Urine pH 7.0 (5.0-9.0) Urine Specific [place] 1.022 (1.001-1.035) Urine Protein Trace (Negative) H Urine Ketones 1+ (Negative) H Urine Blood 3+ /uL (Negative) H Urine Nitrite Negative (Negative) Urine Bilirubin Negative (Negative) Urine Urobilinogen Normal mg/dL (Negative) Urine Leukocyte Esterase 2+ /uL (Negative) Urine RBC 457 /hpf (0 - 3) Urine Microscopic WBC 36 /HPF (0-3) H Urine Squamous Epithelial Cells Few /hpf (<5) Urine Bacteria None seen /hpf (None Seen) Urine Mucus Few (None Seen) Urine Glucose Normal mg/dL (Normal) Microbiology Microbiology Date/Time Source Procedure Growth Status 05/16/25 20:20 Voided Urine Urine Culture - Preliminary Resulted 05/16/25 20:05 Blood Blood Culture - Preliminary NO GROWTH AFTER 24 HOURS OF INCUBATION. Resulted Assessment/Plan Assessment/Plan Status post prostate biopsy for elevated PSA and abdominal MRI Sepsis and septicemia with UTI due to E coli and possible prostatitis Elevated liver function tests/Nito Hypertension Dyslipidemia No right upper lobe mass/there is possible 1st rib cyst Left upper lobe 5 mm nodule possibly inflammatory or postinflammatory Tiny left upper lobe another nodule also possibly inflammatory or postinflammatory Plan: IV fluid. Repeat liver function tests tomorrow. Change antibiotic to Rocephin. No Tylenol or [place]. Further plan per orders Plan discussed with: Patient My Orders Orders - YUMIKO HALL MD Procedure Category Date Status Time Ceftriaxone 1gm/50ml PHA 05/18/25 Logged (Rocephin) 12:00 Sodium Chloride 0.9% PHA 05/18/25 Logged 10:45 Date of Service: May 18, 2025 Billing Provider: YUMIKO HALL MD Common Visit Codes: [id number] INP/OBS CARE(HIGH) YUMIKO HALL MD May 18, 2025 11:11
[2025-05-18 13:00] VITALS: BP 126/85; PULSE 120; RESP 18; TEMP 98.5; O2SAT 98
[2025-05-18] MEDS: SODIUM CHLORIDE 0.9% 1,000 ML IV SCH (13:34)
[2025-05-18 16:51] VITALS: BP 137/87; PULSE 92; RESP 16; TEMP 98.1; O2SAT 98
[2025-05-18 21:00] VITALS: BP 148/91; PULSE 76; RESP 18; TEMP 98.3; O2SAT 99
[2025-05-19 05:00] VITALS: BP 129/77; PULSE 66; RESP 17; TEMP 98.3; O2SAT 95
[2025-05-19 06:27] LABS: Hematocrit 40.6 % (41.0-53.0); Hemoglobin 13.7 g/dL (13.5-17.5); Mean Corpuscular Hemoglobin 28.9 pg (28.0-32.0); Mean Corpuscular Volume 86.0 fL (80.0-100.0); Nucleated Red Blood Cells % 0.0 %
[2025-05-19 06:42] LABS: Anion Gap 9 (5-15); BUN/Creatinine Ratio 7.5 (10.0-20.0); Calcium 9.1 mg/dL (8.7-10.4); Carbon Dioxide 26 mmol/L (20-31); Chloride 106 mmol/L (98-107); Potassium 4.6 mmol/L (3.5-5.1); Sodium 141 mmol/L (136-145); Total Protein 6.6 g/dL (5.7-8.2)
[2025-05-19 06:43] LABS: Albumin 4.2 g/dL (3.2-4.8); Bilirubin, Total 0.4 mg/dL (0.2-1.0)
[2025-05-19 06:50] LABS: Alanine Aminotransferase 222 U/L (7-40); Alkaline Phosphatase 181 U/L (46-116); Blood Urea Nitrogen 6 mg/dL (9-23); Glucose 107 mg/dL (74-106)
[2025-05-19 08:00] VITALS: PULSE 75; RESP 18; O2SAT 97
[2025-05-19 09:00] VITALS: BP 122/79; PULSE 75; RESP 18; TEMP 98.1; O2SAT 97
--- NOTE | 2025-05-19 09:18 | DVHPN2 ---
Subjective Feels better Reviewed: Care Plan, H&P, Labs, Medications, Previous Orders, Radiology Changes from previous H/P or p: No Changes General: Per HPI Objective Vitals Vital Signs Date Time Temp Pulse Resp B/P (MAP) Pulse Ox O2 Delivery O2 Flow Rate FiO2 05/19/25 05:00 98.3 66 17 129/77 (94) 95 98.3 05/18/25 20:00 Room Air* 0 21 Intake/Output Intake and Output 05/19/25 07:00 Intake Total 1200 ml Balance 1200 ml Intake Oral 1100 ml IV Total 100 ml # Voids 4 # Bowel Movements 1 General Appearance: Alert, Oriented X3, Cooperative HEENT: Atraumatic Lungs: Clear to auscultation, Normal air movement Cardiovascular: Regular rate Abdomen: Normal bowel sounds, No tenderness Psych/Mental Status: Mental status NL, Mood NL Medications Current Medications Medications Dose Ordered Sig/Kristopher Route Start Time Stop Time Status Last Admin Dose Admin Temazepam 15 mg QHSP PRN PO 05/16/25 22:00 05/18/25 20:27 15 MG Ondansetron HCl 4 mg Q4HP PRN IV 05/16/25 19:30 Morphine Sulfate 2 mg Q4HPRN PRN IV 05/16/25 19:30 Ergocalciferol 50,000 unit Q7D PO 05/17/25 10:00 05/17/25 09:38 50,000 UNIT Ceftriaxone Sodium 50 ml @ 100 mls/hr DAILY@09 IV 05/18/25 12:00 05/19/25 08:51 100 MLS/HR Sodium Chloride 1,000 ml @ 100 mls/hr Q10H IV 05/18/25 10:45 05/18/25 13:34 100 MLS/HR Laboratory Results Laboratory Tests 05/19/25 05:27 Chemistry Test 05/19/25 05:27 Albumin 4.2 g/dL (3.2-4.8) Calcium Level 9.1 mg/dL (8.7-10.4) Total Protein 6.6 g/dL (5.7-8.2) LFT Test 05/19/25 05:27 Alanine Aminotransferase (ALT) 222 U/L (7-40) H Alkaline Phosphatase 181 U/L (46-116) H Aspartate Amino Transferase (AST) 134 U/L (13-40) H Total Bilirubin 0.4 mg/dL (0.2-1.0) Urinalysis Test 05/16/25 20:20 Urine Color Yellow (Yellow) Urine Clarity Turbid (Clear) H Urine pH 7.0 (5.0-9.0) Urine Specific [place] 1.022 (1.001-1.035) Urine Protein Trace (Negative) H Urine Ketones 1+ (Negative) H Urine Blood 3+ /uL (Negative) H Urine Nitrite Negative (Negative) Urine Bilirubin Negative (Negative) Urine Urobilinogen Normal mg/dL (Negative) Urine Leukocyte Esterase 2+ /uL (Negative) Urine RBC 457 /hpf (0 - 3) Urine Microscopic WBC 36 /HPF (0-3) H Urine Squamous Epithelial Cells Few /hpf (<5) Urine Bacteria None seen /hpf (None Seen) Urine Mucus Few (None Seen) Urine Glucose Normal mg/dL (Normal) Microbiology Microbiology Date/Time Source Procedure Growth Status 05/16/25 20:20 Voided Urine Urine Culture - Final Escherichia coli Complete 05/16/25 20:05 Blood Blood Culture - Preliminary NO GROWTH AFTER 48 HOURS OF INCUBATION. Resulted Assessment/Plan Assessment/Plan Status post prostate biopsy for elevated PSA and abdominal MRI Sepsis and septicemia with UTI due to E coli and possible prostatitis Elevated liver function tests/Nito Hypertension Dyslipidemia No right upper lobe mass/there is possible 1st rib cyst Left upper lobe 5 mm nodule possibly inflammatory or postinflammatory Tiny left upper lobe another nodule also possibly inflammatory or postinflammatory Plan: Repeat liver ultrasound. Check CPK. The liver ultrasound could be elevated from the biopsy as well. We will check hepatitis panel. Repeat liver function tests. Possible discharge home tomorrow if stable and if the numbers trending down Plan discussed with: Patient My Orders Orders - YUMIKO HALL MD Procedure Category Date Status Time Ceftriaxone 1gm/50ml PHA 05/18/25 In Process (Rocephin) 12:00 Sodium Chloride 0.9% PHA 05/18/25 In Process 10:45 LIVER US 05/19/25 Logged 09:14 Comprehensive LAB 05/19/25 Logged Hepatitis Panel 09:14 Labetalol Hcl PHA 05/19/25 Transmitted (Labetalol Hcl) 09:30 Creatine Kinase LAB 05/19/25 Transmitted 09:16 Comprehensive LAB 05/20/25 Verified Metabolic Panel 06:00 Date of Service: May 19, 2025 Billing Provider: YUMIKO HALL MD Common Visit Codes: [id number] INP/OBS CARE(HIGH) YUMIKO HALL MD May 19, 2025 09:18
[2025-05-19] MEDS ORDERED: LABETALOL HCL 20 MG/4 ML VL IV PRN (09:30)
--- NOTE | 2025-05-19 12:18 | DVH ---
INDICATION: hi LFTs TECHNIQUE: Multiple real-time sonographic images of the abdomen were obtained. COMPARISON: US LIVER on DOS: 05/16/25 FINDINGS: The liver is homogenous in echogenicity. The liver measures 14.67 cm. No intrahepatic bili miquel ductal dilatation is noted. The gallbladder wall measures 0.23 cm and is unremarkable. No gallstones or sludge is seen. The co mmon duct measures 0.61 cm and is unremarkable. No pericholecystic fluid is noted. The right kidney measures 10.5 cm. No hydronephrosis. The pancreas is not well visualized due to obscuration from bowel gas. The visualized portions of the IVC and aorta are grossly unremarkable. IMPRESSION: 1. Gallbladder appears normal with a negative sonographic Recio's sign 2. Common bile duct upper limits of normal no cholelithiasis or sludge. 3. Right kidney measures 10.5 cm no hydronephrosis 4. Liver measures 14.7 cm with homogeneous parenchyma.
--- NOTE | 2025-05-19 12:46 | DVHPN2 ---
Progress Note - Dictate Date Seen: May 19, 2025 Has the PT tested + for MRSA If YES, has PT been informed?: No Medical Necessity Reason Pt with a Central, PICC or Fol: No Medical Necessity Reason RUN DATE: 05/18/25 PAGE 1 RUN TIME: 133[address] [facility] [address] [place] [id number] Erica Cassidy M.D., Laboratory Household App[employer] Installer - PATIENT: SYLVIA ANGELES ACCT: [id number] LOC: [place] U: [id number] AGE/SX: 55/M ROOM: 0209 RE05/16/[address]: GWEN KELLER [employer]UAL [employer]S THERAPIST : 1970 BED: A DIS: STATUS: ADM IN TLOC: - SPEC #: [id number] HIRO: 05/16/25 STATUS: COMP REQ #: [id number] RECD: 05/16/[address]: ALINE GALVAN AGACNP SOURCE: VOID ENTR: 05/16/[address]: YOUSIF MAYORGA MD SPDESC: ORDERED: UR COMMENTS: Has specimen been collected/obtained? Y - Procedure Result - Urine Bacterial Culture Final Organism 1 Escherichia coli QUANTITATION >100,000 CFU/ML E COLI M.I.C. RX --------- --- Ampicillin >16 R Ampicillin/Sulbactam >16/8 R Aztreonam <=4 S Cefepime <=2 S Ceftazidime <=1 S Ceftriaxone <=1 S Ciprofloxacin >2 R Ertapenem <=0.5 S Gentamicin <=2 S Levofloxacin >4 R Meropenem <=1 S Nitrofurantoin <=32 S Trimethoprim/Sulfamethoxazole <=2/38 S Piperacillin/Tazobactam <=8 S *CLARISSE value in ug/ml END OF REPORT Subjective Patient is feeling much better vital signs Vital Sign Date Time Temp Pulse Resp B/P (MAP) Pulse Ox O2 Delivery O2 Flow Rate FiO2 05/19/25 09:00 98.1 75 18 122/79 (93) 97 98.1 05/19/25 08:00 Room Air* 0 21 Total Intake and Output 05/18/25 05/18/25 05/19/25 15:00 23:00 07:00 Intake Total 100 ml 900 ml 200 ml Balance 100 ml 900 ml 200 ml medications Current Medications Medications Dose Ordered Sig/Kristopher Route Start Time Stop Time Status Last Admin Dose Admin Temazepam 15 mg QHSP PRN PO 05/16/25 22:00 05/18/25 20:27 15 MG Ondansetron HCl 4 mg Q4HP PRN IV 05/16/25 19:30 Morphine Sulfate 2 mg Q4HPRN PRN IV 05/16/25 19:30 Ergocalciferol 50,000 unit Q7D PO 05/17/25 10:00 05/17/25 09:38 50,000 UNIT Ceftriaxone Sodium 50 ml @ 100 mls/hr DAILY@09 IV 05/18/25 12:00 05/19/25 08:51 100 MLS/HR Sodium Chloride 1,000 ml @ 100 mls/hr Q10H IV 05/18/25 10:45 05/18/25 13:34 100 MLS/HR Labetalol HCl 10 mg Q4HP PRN IV 05/19/25 09:30 objective RUN DATE: 05/17/25 PAGE 1 RUN TIME: 953 [facility] [address] [place] [address] Erica Cassidy M.D., Laboratory Household Appliance Installer - PATIENT: SYLVIA AGNELES ACCT: [id number] LOC: [place] U: [id number] AGE/SX: 55/M ROOM: 0209 RE05/16/[address]: ALINE GALVAN AGACNP : 1970 BED: A DIS: STATUS: ADM IN TLOC: - SPEC #: [id number] HIRO: 05/16/25 STATUS: RES REQ #: [id number] RECD: 05/16/25 [facility] DR: ALINE GALVAN AGACNP SOURCE: VOID ENTR: 05/16/[address]: YOUSIF MAYORGA MD [facility]: ORDERED: UR COMMENTS: Has specimen been collected/obtained? Y - Procedure Result - Urine Bacterial Culture Preliminary Report >100,000 CFU/mL Gram Negative Rods Identification and Susceptibilty test to follow. RUN DATE: 05/18/25 PAGE 1 RUN TIME: 14[address] [facility] [address] [place], [place] [address] Erica Cassidy M.D., Laboratory Household Appliance Installer - PATIENT: SYLVIA ANGELES ACCT: [id number] LOC: [place] U: [id number] AGE/SX: 55/M ROOM: 0209 RE05/16/[address]: GWEN KELLER [employer] THERAPIST : 1970 BED: A DIS: STATUS: ADM IN TLOC: - SPEC #: [id number] HIRO: 05/16/25 STATUS: COMP REQ #: [id number] RECD: 05/16/[address]: ALINE GALVAN AGACNP SOURCE: VOID ENTR: 05/16/[address]: YOUSIF MAYORGA MD SPDESC: ORDERED: [facility] [place] COMMENTS: Has specimen been collected/obtained? Y - Procedure Result - Urine Bacterial Culture Final Organism 1 Escherichia coli QUANTITATION >100,000 CFU/ML E COLI M.I.C. RX --------- --- Ampicillin >16 R Ampicillin/Sulbactam >16/8 R Aztreonam <=4 S Cefepime <=2 S Ceftazidime <=1 S Ceftriaxone <=1 S Ciprofloxacin >2 R Ertapenem <=0.5 S Gentamicin <=2 S Levofloxacin >4 R Meropenem <=1 S Nitrofurantoin <=32 S Trimethoprim/Sulfamethoxazole <=2/38 S Piperacillin/Tazobactam <=8 S *CLARISSE value in ug/ml END OF REPORT laboratory and microbiology Laboratory Tests 05/19/25 05:27 Test 05/19/25 05:27 Range/Units Serum Glucose 107 H 74-106 mg/dL Problem List UTI Assessment/Plan UTI History of elevated PSA status post prostate needle biopsy Treat two weeks with appropriate antibiotics upon discharge- Bactrim DS as E. coli resistent to Cipro 4K score to be repeated in six months Plan discussed with: Patient, Other LIVIA COMBS MD May 19, 2025 12:46
[2025-05-19 13:00] VITALS: BP 144/84; PULSE 54; RESP 18; TEMP 97.5; O2SAT 99
[2025-05-19 17:00] VITALS: BP 140/79; PULSE 82; RESP 18; TEMP 97.5; O2SAT 100
[2025-05-19 21:00] VITALS: BP 128/88; PULSE 65; RESP 17; TEMP 97; O2SAT 99
[2025-05-20 05:00] VITALS: BP 125/86; PULSE 78; RESP 16; TEMP 98; O2SAT 97
[2025-05-20 07:51] VITALS: PULSE 85; RESP 18; O2SAT 97
[2025-05-20 08:02] LABS: Albumin 4.3 g/dL (3.2-4.8); Anion Gap 10 (5-15); BUN/Creatinine Ratio 7.1 (10.0-20.0); Bilirubin, Total 0.4 mg/dL (0.2-1.0); Calcium 9.2 mg/dL (8.7-10.4); Carbon Dioxide 27 mmol/L (20-31); Chloride 107 mmol/L (98-107); Potassium 4.1 mmol/L (3.5-5.1); Sodium 144 mmol/L (136-145); Total Protein 6.8 g/dL (5.7-8.2)
[2025-05-20 08:05] LABS: Alanine Aminotransferase 216 U/L (7-40); Alkaline Phosphatase 192 U/L (46-116); Blood Urea Nitrogen 5 mg/dL (9-23); Glucose 106 mg/dL (74-106)
[2025-05-20 09:00] VITALS: BP 140/88; PULSE 85; RESP 18; TEMP 97.2; O2SAT 100
[2025-05-20] MEDS ORDERED: CEFU500T43 PO ×2 (11:08→11:10)
--- NOTE | 2025-05-20 11:24 | DVHDS2 ---
Discharge Summary Date of Admission May 16, 2025 at 19:01 Date of Discharge: May 20, 2025 Admitting Diagnosis Rule out sepsis Labs/Diagnostic Data: Laboratory Results Test 05/20/25 06:30 05/19/25 05:27 05/17/25 05:17 05/16/25 21:40 Sodium Level 144 mmol/L (136-145) Potassium Level 4.1 mmol/L (3.5-5.1) Chloride Level 107 mmol/L (98-107) Carbon Dioxide Level 27 mmol/L (20-31) Anion Gap 10 (5-15) Blood Urea Nitrogen 5 mg/dL (9-23) Creatinine 0.70 mg/dL (0.700-1.30) Glomerular Filtration Rate Calc 110 mL/min (>90) BUN/Creatinine Ratio 7.1 (10.0-20.0) Serum Glucose 106 mg/dL (74-106) Calcium Level 9.2 mg/dL (8.7-10.4) Total Bilirubin 0.4 mg/dL (0.2-1.0) Aspartate Amino Transferase (AST) 104 U/L (13-40) Alanine Aminotransferase (ALT) 216 U/L (7-40) Alkaline Phosphatase 192 U/L (46-116) Total Protein 6.8 g/dL (5.7-8.2) Albumin 4.3 g/dL (3.2-4.8) White Blood Count 6.0 10^3/uL (4.4-10.8) Red Blood Count 4.72 10^6/uL (4.5-5.90) Hemoglobin 13.7 g/dL (13.5-17.5) Hematocrit 40.6 % (41.0-53.0) Mean Corpuscular Volume 86.0 fL (80.0-100.0) Mean Corpuscular Hemoglobin 28.9 pg (28.0-32.0) Mean Corpuscular Hemoglobin Concent 33.6 g/dL (32.0-36.0) Red Cell Distribution Width 13.6 % (11.8-14.3) Platelet Count 236 10^3/uL (140-450) Mean Platelet Volume 8.3 fL (6.9-10.8) Neutrophils (%) (Auto) 45.7 % (37.0-80.0) Lymphocytes (%) (Auto) 32.3 % (10.0-50.0) Monocytes (%) (Auto) 19.4 % (0.0-12.0) Eosinophils (%) (Auto) 1.9 % (0.0-7.0) Basophils (%) (Auto) 0.7 % (0.0-2.0) Neutrophils # (Auto) 2.7 10 ^3/uL (1.6-8.6) Lymphocytes # (Auto) 1.9 10 ^3/uL (0.4-5.4) Monocytes # (Auto) 1.2 10 ^3/uL (0-1.3) Eosinophils # (Auto) 0.1 10 ^3/uL (0-0.8) Basophils # (Auto) 0 10 ^3/uL (0-0.2) Nucleated Red Blood Cells 0.0 % Creatine Kinase 52 U/L (46-171) Prothrombin Time 11.3 sec (9.3-11.8) Prothrombin Time INR 1.07 (0.9-1.15) Activated Partial Thromboplast Time 34.2 SEC (24.5-34.5) Lactic Acid Level 0.8 mmol/L (0.4-2.0) Phosphorus Level 2.8 mg/dL (2.4-5.1) Magnesium Level 2.1 mg/dL (1.6-2.6) C-Reactive Protein High Sensitivity 14.66 mg/dL (<1.0) Triglycerides Level 76 mg/dL (< 150) Cholesterol Level 125 mg/dL (< 200) LDL Cholesterol 51 mg/dL (< 100) HDL Cholesterol 62 mg/dL (40-59) Thyroid Stimulating Hormone (TSH) 0.57 uIU/mL (0.55-4.78) Test 05/16/25 20:20 05/16/25 20:05 Urine Color Yellow (Yellow) Urine Clarity Turbid (Clear) Urine pH 7.0 (5.0-9.0) Urine Specific [place] 1.022 (1.001-1.035) Urine Protein Trace (Negative) Urine Ketones 1+ (Negative) Urine Blood 3+ /uL (Negative) Urine Nitrite Negative (Negative) Urine Bilirubin Negative (Negative) Urine Urobilinogen Normal mg/dL (Negative) Urine Leukocyte Esterase 2+ /uL (Negative) Urine RBC 457 /hpf (0 - 3) Urine Microscopic WBC 36 /HPF (0-3) Urine Squamous Epithelial Cells Few /hpf (<5) Urine Bacteria None seen /hpf (None Seen) Urine Mucus Few (None Seen) Urine Glucose Normal mg/dL (Normal) Erythrocyte Sedimentation Rate 14 mm/hr (0-20) Vitamin B12 Level 555 pg/mL (211-911) Vitamin D 25-Hydroxy 28.2 ng/mL (30.0-100) Other Laboratory Tests 05/20/25 06:30 05/19/25 05:27 Brief Hx & Hospital Course: History of Present Illness 55-year-old male presents for evaluation of fever. Patient reports having a prostate biopsy two days ago. He states that since yesterday he developed a fever that has been constant with an associated generalized weakness headache and nausea. He also states mild dysuria and hematuria with initial urination which subsides. Course of hospitalization: Patient was started on IV Rocephin as well as IV hydration with improvement with the patient's white blood cell count. Urine culture positive for E coli. LFTs also noted to be somewhat elevated, trending down. Patient's symptoms have improved. White blood cell count is now normal. CT scan was performed of the chest, findings discussed with patient. Patient also had liver ultrasound x2, without any acute findings. Discussion was made with the patient regarding discharge plan including continuation oral antibiotic therapy for the next two weeks, and follow up with PCP in 1-2 weeks. Patient will also have a CBC and CMP in one week. Patient was agreeable with discharge plan. All questions answered. Physical exam General: Alert and Oriented x3. No acute distress. Well-nourished. Eyes: EOMI. Anicteric. HENT: Moist mucous membranes. Lungs: Clear to auscultation bilaterally. No accessory muscle use. Cardiovascular: Regular rate and rhythm. No murmur. No JVD. Abdomen: Soft, non-tender and non-distended. No palpable masses. Extremities: No edema. Non-tender. Skin: No rashes or lesions. Warm. Neurologic: No focal neurological deficits. CN II-XII grossly intact, but not individually tested. Psychiatric: Cooperative. Appropriate mood and affect. Total time spent with patient discussing and formulating plan of care: 35 minutes. This medical document was created using an electronic medical record system with [employer] dictation system. Although this document has been carefully reviewed, there may still be some phonetic and typographical errors. These areas are purely typographical due to imperfections of the software programs, and do not reflect any compromise in the patient's medical care. Consults/Reason for consult Urology: Status post prostate biopsy Condition at Discharge: Fair Final Diagnosis/Problems List Sepsis secondary to complicated cystitis Transaminitis secondary to sepsis Discharge Disposition: Home Discharge Instruct/Medications Diet: Cardiac 2g Na,low cholest (2 gm sodium, low cholesterol) Activity: No Restrictions, As Tolerated Follow Up/Referral: PCP in 1-2 weeks Medications: Cefuroxime 500 mg p.o. twice a day times 14 days Hold statin given elevated LFTs Scheduled Aspirin (Aspirin 81 Low Dose), 81 MG PO DAILY, (Reported) Cefuroxime Axetil (Cefuroxime Axetil), 1 TAB PO BID Ciprofloxacin Hcl (Cipro), 500 MG PO BID, (Reported) Losartan Potassium (Losartan Potassium), 50 MG PO DAILY, (Reported) Scheduled PRN Tramadol Hcl (Tramadol Hcl), 50 MG PO Q6HP PRN for PAIN SCALE 1 THRU 6, (Reported) Miscellaneous Medications Atorvastatin Calcium (Lipitor), (Reported) 36 Discharge Statement: "Patient was advised to return to the ER or call 911 if any headaches, dizziness, shortness of breath, chest pain, abdominal pain, bleeding, fevers, or worsening of medical condition. Patient was counseled about treatment plan, medications, possible side effects, patientverbalized understanding. All questions were answered to the best of my ability. This discharge took greater then 30 minutes in planning, reviewing documentation, counseling the patient, and discussing with other team members." ASSESSMENT ASSESSMENT Assessment Date of Service: May 20, 2025 Billing Provider: GWEN KELLER NP Common Visit Codes: [id number] DISCH DAY >30min GWEN KELLER NP May 20, 2025 11:24
[2025-05-20 11:32] LABS: Hepatitis A Total Antibody Positive (Negative); Hepatitis B Surface Antigen Negative (Negative); Hepatitis C Antibody Negative (Negative)
== END 2025-05-20 14:55 | disposition home or self-care (01) | DRG 872 ==
LOC: CENTRAL 19:01
PROVIDERS: ADMIT Nurse Practitioner Acute Care; ATTEND Nurse Practitioner Acute Care
DX: A41.51 Sepsis due to Escherichia coli [E. coli] (principal); I10 Essential (primary) hypertension; E78.5 Hyperlipidemia, unspecified; R53.81 Other malaise; N41.9 Inflammatory disease of prostate, unspecified; N30.90 Cystitis, unspecified without hematuria; R79.89 Other specified abnormal findings of blood chemistry; R50.82 Postprocedural fever; R74.01 Elevation of levels of liver transaminase levels; Z82.3 Family history of stroke
CPT/HCPCS: 36415; 71046; 71250; 76705; 80053; 80061; 81001; 82306; 82550; 82607; 83605; 83735; 84100; 84443; 85025; 85610; 85652; 85730; 86141; 86704; 86706; 86708; 86803; 87040; 87086; 87088; 87186; 87340; G0378

== ENCOUNTER 2025-07-02 11:10 | Outpatient (CLI) | payer BC ==
[~2025-07-02] VITALS: Ht 180.3 cm; Wt 70.2 kg
[2025-07-02] VITALS (11 sets, daily range): BP systolic 117–124; BP diastolic 73–84; PULSE 63–72; RESP 13–22; O2SAT 94–98
[~2025-07-02 11:10] MED LIST changes: +NITROGLYCERIN 0.4 MG SL TAB SL ONE
[2025-07-02] MEDS ORDERED: IOHEXOL 300 MG/ML 100ML BOTTLE IJ ONE (11:44)
[2025-07-02] MEDS ORDERED: IOHEXOL 350 MG/ML 100ML IJ ONE (12:30)
--- NOTE | 2025-07-04 03:59 | DVH ---
Procedure: CT CT HEART/ CALCIUM SCORE Reason for study/Clinical History: CHEST PAIN Comparison Study: NM CARDIOLITE MULTIPLE on DOS: 05/02/25, US ECHO 2D MODE CARDIAC DOP on DOS: 05/02/25 Exam Date: 07/02/2025 12:34 PM Technique: Imaging of the coronary arteries was performed without intravenous contrast administration. Coronary artery calcification analysis was performed with the SmartScore program at a threshold of 130 Hounsfield units. A combination of automated exposure control and/or iterative reconstruction technique was utilized for dose reduction. CT reconstructions with sagittal and coronal reformations were also performed. Findings: Coronary arteries: Calcium Score: LAD: 65 RCA 0.2, LCX 14, Other LM: 24.4,. Total: 103.9 Cardiac: There is normal size of the heart. Normal pericardium without thickening or calcification. No pericardial effusion. Other findings: Normal caliber of visualized aorta. Respiratory motion artifact and hypoventilatory changes. No focal abnormality is seen within lung parenchyma. No osseous or soft tissue abnormality is noted. IMPRESSION: FOR A male OF 55 YEARS, A TOTAL CALCIUM SCORE OF 103.9 PLACES THIS PATIENT WITHIN THE 75 PERCENTILE RANGE. Background Information: Coronary calcium is a marker for atherosclerosis. Spiral CT is used to detect the presence and amount of calcium in the major coronary arteries. The location of the calcification does not correspond directly to the site of stenosis but does correlate with severity of underlying disease. A score of zero indicates no coronary artery calcification and thus very low likelihood of significant coronary artery disease. However, some patients may only have soft (non- calcified)plaque and thus may have a false negative screening study. Even with a minimal plaque score, between 5-10% of patients may still have significant coronary artery disease. Any score above zero indicates some degree of coronary artery disease. The higher the score, the more likely significant disease is present. The number of coronary arteries affected and degree of calcium for the patient's age and sex affects clinical significance of the score. The management of a patient should not be based solely on the result of this study, but should be integrated with other clinical and laboratory findings. Radiation Dose Information: CT Dose: CTDI volume is 77 mGy. Dose-length product is 1354.22 mGy*cm
== END 2025-07-02 17:00 | disposition home or self-care (01) ==
LOC: CATH 11:10 → EDSTATUS 11:33 → CATH 17:00
PROVIDERS: ATTEND Internal Medicine
DX: Z13.6 Encounter for screening for cardiovascular disorders (principal); I10 Essential (primary) hypertension; I25.10 Atherosclerotic heart disease of native coronary artery without angina pectoris
CPT/HCPCS: 75571; Q9967

== ENCOUNTER 2025-07-02 13:13 | Outpatient (CLI) | payer BC ==
[~2025-07-02 13:13] MED LIST changes: -NITROGLYCERIN 0.4 MG SL TAB SL ONE
[2025-07-02 13:34] LABS: Alkaline Phosphatase 86 U/L (46-116); Anion Gap 11 (5-15); BUN/Creatinine Ratio 14.7 (10.0-20.0); Blood Urea Nitrogen 10 mg/dL (9-23); Calcium 9.2 mg/dL (8.7-10.4); Carbon Dioxide 24 mmol/L (20-31); Glucose 104 mg/dL (74-106); Potassium 4.0 mmol/L (3.5-5.1); Sodium 142 mmol/L (136-145); Total Protein 6.8 g/dL (5.7-8.2)
[2025-07-02 13:35] LABS: Alanine Aminotransferase 48 U/L (7-40); Albumin 4.3 g/dL (3.2-4.8); Bilirubin, Total 0.4 mg/dL (0.2-1.0); Chloride 107 mmol/L (98-107)
== END 2025-07-02 17:00 | disposition home or self-care (01) ==
LOC: LAB 13:13
PROVIDERS: ATTEND Internal Medicine
DX: I10 Essential (primary) hypertension (principal)
CPT/HCPCS: 36415; 80053